=== PATIENT | female | born 1950 | race Caucasian/White ===

== ENCOUNTER 2016-12-21 14:23 | Outpatient (CLI) | payer MEDICARE, BC | END 2016-12-21 14:24 | disposition home or self-care (01) | DX: Z13.820 Encounter for screening for osteoporosis (principal); M85.88 Other specified disorders of bone density and structure, other site; N95.8 Other specified menopausal and perimenopausal disorders ==

== ENCOUNTER 2018-08-17 09:54 | Outpatient (CLI) | payer MEDICARE, BC ==
--- NOTE | 2018-08-18 08:45 | Mammography Report ---
Reason: SCREENING MAMMO Procedure Date: 08/17/2018 Accession Number: [id number] / [id number] Procedure: ALYSSA - Screening Mammo w/[facility] CPT Code: FULL RESULT: EXAM: Screening Mammo w/[facility] DATE: 08/17/2018 10:21 AM CLINICAL HISTORY: Screening encounter. History of nulliparity and breast biopsy as well as personal history of anal cancer status post chemoradiation. TECHNIQUE: Bilateral CC, laterally exaggerated CC, MLO views were obtained. COMPARISON: 12/11/2015 through 05/17/2012. FINDINGS: The breasts demonstrate heterogeneously dense fibroglandular parenchyma bilaterally. A coarse typically benign left breast calcification is identified. A well-circumscribed isodense left upper outer quadrant posterior ovoid mass is stable dating back to 2011, typically benign finding given stability and appearance on 3-D tomography; most likely a cyst. No suspicious masses, clustered microcalcifications, or regions of architectural distortion are identified. IMPRESSION: Benign findings RECOMMENDATION: Routine annual screening unless otherwise clinically indicated. BIRADS CATEGORY 2: Benign findings STANDARD QUALIFYING STATEMENTS: 1. This examination was not reviewed with the aid of Computer-Aided Detection (CAD). 2. A negative or benign imaging report should not preclude biopsy if clinically suspicious findings are present. 3. Dense breasts may obscure an underlying neoplasm. 4. This examination was reviewed with the aid of 3D breast imaging (tomosynthesis).
== END 2018-08-17 09:55 | disposition home or self-care (01) ==
LOC: DI 09:54
PROVIDERS: ATTEND Internal Medicine
DX: Z12.31 Encounter for screening mammogram for malignant neoplasm of breast (principal); Z08 Encounter for follow-up examination after completed treatment for malignant neoplasm; Z85.048 Personal history of other malignant neoplasm of rectum, rectosigmoid junction, and anus
CPT/HCPCS: 77063; 77067

== ENCOUNTER 2019-04-28 11:43 | Emergency (ER) | payer MEDICARE, BC ==
[2019-04-28 11:51] VITALS: BP 149/87
--- NOTE | 2019-04-28 12:16 | XRAY Report ---
Reason: Productive cough Procedure Date: 04/28/2019 Accession Number: [id number] / [id number] Procedure: XR - Chest 2 View X-Ray CPT Code: 20146 FULL RESULT: EXAM: CHEST RADIOGRAPHY EXAM DATE: 04/28/2019 12:00 PM. CLINICAL HISTORY: Productive cough. Duration 10 days. COMPARISON: None. TECHNIQUE: 2 views. FINDINGS: Lungs/Pleura: No focal opacities evident. No pleural effusion. No pneumothorax. Normal volumes. Mediastinum: Heart and mediastinal contours are unremarkable. Other: None. IMPRESSION: No consolidation. RADIA
--- NOTE | 2019-04-28 12:49 | ED Physician Documentation ---
History of Present Illness - Stated complaint Stated Complaint: COLD SX - Chief complaint Chief Complaint: Resp - Additonal information Additional information: This is a 68-year-old female who denies past medical history who presents with 10 days of cough. Patient was on a cruise recently, she states that there were many illnesses being passed around the cruise ship. She developed a cough and sore throat around 10 days ago, this was initially productive of some yellow sputum, now is largely unproductive. It is worse at night, and has been keeping her up. She denies shortness of breath or chest pain. She does have some lower rib soreness which is mild after coughing fits. She denies abdominal pain vomiting, or diarrhea. No ear pain. She has a very mild low-grade headache, which was gradual in onset and not of high concern to her. No numbness or weakness or tingling. Review of Systems Constitutional: denies: Fever Cardiac: denies: Chest pain / pressure Respiratory: reports: Cough GI: denies: Abdominal Pain Immunocompromised: denies: Immunocompromised PD PAST MEDICAL HISTORY - Past Medical History Past Medical History: No - Present Medications Home Medications: Ambulatory Orders Medication Instructions Recorded Confirmed Benzonatate [Tessalon Perle] 100 - 200 mg PO TID PRN #30 capsule 04/28/19 Famotidine [Pepcid AC] 10 mg PO 04/28/19 - Allergies Allergies/Adverse Reactions: Allergies Allergy/AdvReac Type Severity Reaction Status Date / Time No Known Drug Allergies Allergy Verified 04/28/19 11:51 - Living Situation Living Arrangement: reports: At home - Social History Does the pt smoke?: No PD ED PE NORMAL - Vitals Vital signs reviewed: Yes - General General: Alert and oriented X 3, No acute distress - HEENT HEENT: Moist mucous membranes, Pharynx benign - Neck Neck: Supple, no meningeal sign - Cardiac Cardiac: RRR, No murmur - Respiratory Respiratory: Other (Intermittent cough, lungs are clear to auscultation bilaterally, no wheeze.) - Abdomen Abdomen: Soft, Non tender, Non distended - Derm Derm: Warm and dry - Extremities Extremities: No deformity - Neuro Neuro: Alert and oriented X 3 - Psych Psych: Normal mood, Normal affect Results - Vitals Vitals: Vital Signs - 24 hr 09/06/19 09/06/19 11:50 11:51 Temperature 36.6 C 36.6 C Heart Rate 75 75 Respiratory 18 18 Rate Blood Pressure 149/87 H 149/87 H O2 Saturation 100 100 Oxygen O2 Source Room air - Rads (name of study) CXR Radiology: Prelim report reviewed (No acute cardiopulomonary abnormality), Other PD MEDICAL DECISION MAKING - ED course Complexity details: considered differential (Viral syndrome, bronchitis, laryngitis, post viral cough, pneumonia, pneumothorax.) ED course: Patient presents with a cough for 10 days, she is well-appearing, she does have a hoarse voice and intermittent cough on exam. She is afebrile and her vital signs are unremarkable. Her chest x-ray shows no signs of acute abnormality, and no signs of pneumonia and clinically without a fever I doubt that pneumonia is present. No signs of heart failure on exam. I think she likely has a viral syndrome or post viral cough. I discussed with her that we should trial supportive care and Tessalon Perles, she can also use tea with honey. Tylenol and ibuprofen can be used for her symptoms as well. Her headache is mild and it was gradual in onset, and I see no red flags that require imaging or further work-up today. I recommended follow-up with her primary care provider return to the emergency department with any worsening symptoms. Patient agreed and was discharged home in the care of her . Departure - Departure Disposition: 01 Home, Self Care Clinical Impression: Cough Condition: Good Instructions: ED Viral Syndrome Follow-Up: Pratik Child MD [Primary Care Provider] - Within 1 week Prescriptions: Benzonatate [Tessalon Perle] 100 - 200 mg PO TID PRN #30 capsule PRN Reason: Cough Comments: You were seen today for a cough. Your x-ray looks clear, I do not see signs of a pneumonia today. I think this is likely a bronchitis that is the result of a virus, it may also be some post viral inflammation. You may try the Tessalon Perles and tea with honey for cough, you may also take Tylenol and ibuprofen for discomfort. If you develop worsening symptoms such as shortness of breath, blood in your sputum, fever, or other concerning symptoms please return to the emergency department. Otherwise follow-up with your primary care provider. Discharge Date/Time: 04/28/19 13:13
== END 2019-04-28 13:13 | disposition home or self-care (01) ==
LOC: ED 11:43
DX: R05 Cough (principal)
CPT/HCPCS: 71046; 99283; 99284